=== PATIENT | male | born 1930 | race Caucasian/White ===

== ENCOUNTER → 2018-01-14 | Outpatient (CLI) | payer OTHER ==
[~2018-01-14] MED LIST: ALPR-411 PO; BENA20TA14 PO; CMD1 PO; HYT/2 PO; OXYC-57 PO; OXYSR10 PO; SIMV20TA2 PO
== END ==
LOC: C.LABSPEC 17:04
PROVIDERS: ATTEND Podiatrist Foot & Ankle Surgery
DX: B35.1 Tinea unguium (principal)